=== PATIENT | female | born 2000 ===

== ENCOUNTER 2020-02-11 13:24 | Emergency (ER) | payer SELFPAY ==
--- NOTE | 2020-02-11 13:55 | Event Note ---
ED Screening Note Date of service: 02/11/20 Time: 13:54 ED Screening Note: Patient presents with complaints of vaginal bleeding and lower abdominal pain in States 10 weeks States was seen by SOFTWARE CLERK yesterday and told there was no heart tones Patient states bleeding started today This initial assessment/diagnostic orders/clinical plan/treatment(s) is/are subject to change based on patients health status, clinical progression and re- assessment by fellow clinical providers in the ED. Further treatment and workup at subsequent clinical providers discretion. Patient/guardian urged not to elope from the ED as their condition may be serious if not clinically assessed and managed. Initial orders include: Labs Ultrasound
[2020-02-11 13:58] VITALS: BP 156/84
--- NOTE | 2020-02-11 15:14 | Ultrasound Report ---
OBSTETRICAL ULTRASOUND HISTORY: Vaginal bleeding. 10 weeks . FINDINGS: Imaging was performed by transabdominally and endovaginally. The uterus measures 8.4 x 4.4 x 6.9 cm. Endometrial stripe measures approximately 9 mm. No intrauterine . Right ovary measures 3.2 x 1.9 x 2 cm. Left ovary measures 2.4 x 1.7 x 1.9 cm. Both ovaries demonstra te flow. Trace pelvic free fluid is present. IMPRESSION: 1. Mild thickening of the endometrial stripe. No intrauterine . 2. Small amount of pelvic free fluid. Signer Name: Vinnie Daniel MD Signed: 02/11/2020 3:10 PM Workstation Name: [id number]
[2020-02-11 15:43] LABS: Alanine Aminotransferase 12 units/L (7-56); Albumin 4.7 g/dL (3.9-5); Blood Urea Nitrogen 8 mg/dL (7-17); Hemolysis Index 2
[2020-02-11 15:44] LABS: BUN/Creatinine Ratio 13
[2020-02-11 15:58] LABS: Basophils # (Auto) 0.1 K/mm3 (0.0-0.1); Basophils % (Auto) 0.5 % (0.0-1.8); Eosinophils # (Auto) 0.1 K/mm3 (0.0-0.4); Eosinophils % (Auto) 0.7 % (0.0-4.3); Hematocrit 39.9 % (30.3-42.9); Hemoglobin 13.1 gm/dl (10.1-14.3); Lymphocytes # (Auto) 2.6 K/mm3 (1.2-5.4); Lymphocytes % (Auto) 22.3 % (13.4-35.0); Mean Corpuscular HGB Conc 33 % (30-34); Mean Corpuscular Volume 91 fl (79-97); Monocytes # (Auto) 0.6 K/mm3 (0.0-0.8); Monocytes % (Auto) 5.1 % (0.0-7.3); Platelet Count 302 K/mm3 (140-440); Red Cell Distribution Width 13.8 % (13.2-15.2)
[2020-02-11 18:01] LABS: Bilirubin,Urine NEG (Negative); Blood,Urine LG (Negative); Color,Urine Yellow (Yellow); Mucus,Urine 1+ /HPF; Urobilinogen,Urine < 2.0 mg/dL (<2.0)
[2020-02-11 18:05] LABS: RBC,Urine > 182.0 /HPF (0.0-6.0)
== END 2020-02-11 19:50 | disposition left against medical advice (07) ==
LOC: ED 13:24
DX: O46.91 Antepartum hemorrhage, unspecified, first trimester (principal); Z3A.10 10 weeks gestation of pregnancy; Z53.21 Procedure and treatment not carried out due to patient leaving prior to being seen by health care provider
CPT/HCPCS: 36415; 76801; 76817; 80053; 81001; 84702; 85025; 86900; 86901; 87086